=== PATIENT | male | born 1965 | race Caucasian/White ===

== ENCOUNTER 2021-03-29 08:11 | Day surgery (SDC) | payer BC ==
[2021-03-29] MEDS ORDERED: NA CHLORIDE 0.9% 1,000 ML ONE (08:55)
[2021-03-29] MEDS ORDERED: MIDAZOLAM HCL 2 MG/2 ML INJ ONE (09:20)
[2021-03-29] MEDS ORDERED: NALOXONE 0.4 MG/ML VIAL ONE (09:20)
[2021-03-29] MEDS ORDERED: FENTANYL CITR 100 MCG/2 ML ONE (09:21)
[2021-03-29 09:55] VITALS: BMI 20.5
--- NOTE | 2021-03-29 10:01 | RAD REPORT ---
EXAM DESCRIPTION: US - Liver Biopsy Procedure - 03/29/2021 9:39 am CLINICAL HISTORY: BX COMPARISON: No comparisons FINDINGS: Preoperative diagnosis: Liver masses. Post operative diagnosis: Same. Conscious Sedation: None Fluoroscopy time: None Contrast used: None Estimated blood loss: Minimal Specimens:2 x 18 gauge core biopsy specimens The right upper quadrant was prepped and draped in the usual sterile fashion. 1% lidocaine was infilt rated into the subcutaneous tissues for local anesthesia. Real time ultrasound scanning of the liver demonstrated several liver masses. Under ultrasound guidance, using a 18-gauge, 6 cm long, 2 cm throw core biopsy gun, 2 specimens were obtained of this lesion and sent to pathology for evaluation. Ther e were no complications. IMPRESSION: Technically successful ultrasound-guided core biopsy of a mass in the right hepatic lobe . No immediate complications. Conscious sedation was utilized.
[2021-03-29 10:45] VITALS: TEMP 97.3
[2021-03-29 16:15] VITALS: BP 118/66; O2SAT 99
== END 2021-03-29 13:28 | disposition home or self-care (01) ==
LOC: DS 08:11
PROVIDERS: ATTEND Internal Medicine Hematology & Oncology
PROC: BF45ZZZ Ultrasonography of Liver (ICD-10-PCS; principal; 2021-03-29)
PROC: 0FB13ZX Excision of Right Lobe Liver, Percutaneous Approach, Diagnostic (ICD-10-PCS; 2021-03-29)
DX: C78.7 Secondary malignant neoplasm of liver and intrahepatic bile duct (principal)
CPT/HCPCS: 88307; 47000; 76942; J2250; J3010; J7030; J2310